=== PATIENT | female | born 1995 | race Caucasian/White ===

== ENCOUNTER 2019-05-04 12:25 | Inpatient (IN) | payer OTHER ==
[~2019-05-04] VITALS: Ht 154.9 cm; Wt 88.8 kg
[~2019-05-04 12:25] MED LIST: CIPR500T4 PO; NAPR-985 PO; PREN1TAB62 PO; TAMS-14 PO
[2019-05-04] MEDS ORDERED: LACTATED RINGER'S 1,000 ML IV PRN (13:08)
[2019-05-04 13:17] VITALS: Ht 154.9 cm; Wt 88.8 kg
[2019-05-04] MEDS: LACTATED RINGER'S 1,000 ML IV SCH ×2 (13:21→20:22)
[2019-05-04] MEDS ORDERED: LIDOCAINE 1% (MPF) 30 ML INJ INJ PRN (13:30)
[2019-05-04] MEDS ORDERED: MISOPROSTOL 200 MCG TAB PR PRN (13:30)
[2019-05-04] MEDS ORDERED: OXYTOCIN 30 UNITS/LR 500 ML IV PRN (13:30)
[2019-05-04] MEDS ORDERED: CARBOPROST 250 MCG INJ IM PRN (13:30)
[2019-05-04] MEDS ORDERED: OXYTOCIN 30 UNITS/LR 500 ML IV SCH ×2 (13:30)
[2019-05-04] MEDS ORDERED: IBUPROFEN 600 MG TAB PO PRN (13:30)
[2019-05-04] MEDS ORDERED: METHYLERGONOVINE 0.2 MG INJ IM PRN (13:30)
[2019-05-04] MEDS: OXYTOCIN 30 UNITS/LR 500 ML IV SCH (18:41)
[2019-05-04] MEDS ORDERED: ACETAMINOPHEN 325 MG TAB PO ONE (22:30)
[2019-05-05] MEDS ORDERED: BUTORPHANOL 2 MG INJ ONE (04:33)
[2019-05-05] MEDS: LACTATED RINGER'S 1,000 ML IV SCH ×2 (04:41→18:34)
[2019-05-05] MEDS ORDERED: BUTORPHANOL 2 MG INJ IV PRN (05:00)
--- NOTE | 2019-05-05 09:54 | PREAC ---
Date/Time of Note Date/Time of Note DATE: 05/05/19 TIME: 09:53 Anesthesia Eval and Record Evaluation Time Pre-Procedure Interview DATE: 05/05/19 TIME: 09:53 Age 24 Sex female NPO: 8 hrs Preoperative diagnosis LABOR PAIN Planned procedure LABOR EPIDURAL Past Medical History Past Medical History: Includes : : (2), Para: (1), Gestational age: (39 3/7 WEEKS) Surgery & Anesthesia Issues No known issue Meds Anticoagulation: No Beta Jaspreet within 24 hr: No Reason Beta Jaspreet not given: Pt. not on B-Jaspreet Active Scripts Tamsulosin Hcl* (Flomax*) 0.4 Mg Cap.er.24h, 0.4 MG PO QPM, #20 CAP take with food Prov:AFSHIN CROWELL PA-C 01/31/17 Naproxen* (Naprosyn*) 500 Mg Tablet, 500 MG PO BID PRN for PAIN AND/OR INFLAMMATION, #30 TAB Prov:AFSHIN CROWELL PA-C 01/31/17 Ciprofloxacin Hcl* (Ciprofloxacin Hcl*) 500 Mg Tablet, 500 MG PO BID for 10 Days, TAB Prov:AFSHIN CROWELL PA-C 01/31/17 Reported Medications Vit-Iron Fumarate-FA ( Vitamin Tablet) 1 Each Tablet, 1 TAB PO DAILY, TAB 10/04/16 Current Medications Lactated Ringer's 1,000 ml @ 125 mls/hr Q8H IV Last administered on 05/05/19at 04:41; Admin Dose 125 MLS/HR; Start 05/04/19 at 13:08 Lidocaine (Xylocaine 1% (Mpf)) 30 ml ONCE PRN INJ .EPISIOTOMY; Start 05/04/19 at 13:30 Oxytocin/Lactated Ringer's 500 ml @ 500 mls/hr ONCE POST IV ; Start 04/24 12/12 at 13:30 Oxytocin/Lactated Ringer's 500 ml @ 125 mls/hr POST IV ; Start 05/04/19 at 13:30 Ibuprofen (Motrin) 600 mg ONCE PRN PO .PAIN 1-5; Start 05/04/19 at 13:30 Lactated Ringer's 1,000 ml @ 2,000 mls/hr Q30M PRN IV .ANESTHESIA; Start 05/04/19 at 13:08 Oxytocin/Lactated Ringer's 500 ml @ 0 mls/hr ONCE PRN IV .VAGINAL BLEEDING; Start 05/04/19 at 13:30 Methylergonovine Maleate (Methergine) 0.2 mg ONCE PRN IM .VAGINAL BLEEDING; Start 05/04/19 at 13:30 Carboprost Tromethamine (Hemabate) 250 mcg ONCE PRN IM .VAGINAL BLEEDING; Start 05/04/19 at 13:30 Misoprostol (Cytotec) 1,000 mcg ONCE PRN [place] .VAGINAL BLEEDING; Start 05/04/19 at 13:30 Oxytocin/Lactated Ringer's 500 ml @ 0 mls/hr FOR INDUCTION IV Last administered on 05/04/19at 18:41; Admin Dose 1 MLS/HR; Start 05/04/19 at 16:30 Butorphanol Tartrate (Stadol) 2 mg Q2H PRN IV .PAIN SCALE 6-10 Last administered on 05/05/19at 04:41; Admin Dose 2 MG; Start 05/05/19 at 05:00 Meds reviewed: Yes Allergies Coded Allergies: No Known Allergy (Unverified , 10/04/16) Allergies Reviewed: Yes Labs/Studies Labs Reviewed: Reviewed by anesthesiologist Result Diagram: 05/04/19 1249 05/04/19 1249 Laboratory Tests 05/04/19 12:49 Blood Bank Test 05/04/19 12:49 Antibody Screen NEGATIVE Blood Type B POSITIVE Rh Immune Globulin Candidate NO test: N/A Pre-procedure Exam Airway: Adequate mouth opening, Adequate thyromental dist Mallampati: Mallampati II Teeth: Normal Lung: Normal Heart: Normal ASA Physical Status ASA physical status: 2 Emergency: None Planned Anesthetic Neuraxial: Epidural Planned Pain Management Epidural Pre-operative Attestations Prior to commencing anesthesia and surgery, the patient was re-evaluated, there was verification of: *The patient's identity *The results of appropriate recent lab work and preoperative vital signs *The above evaluation not changing prior to induction *Anesthetic plan, risk benefits, alternative and complications discussed with patient/family; questions answered; patient/family understands, accepts and wishes to proceed. Rocky Dumont M.D. May 05, 2019 09:54
[2019-05-05] MEDS ORDERED: FENTAnyl 2MCG/ML-ROPIV 0.2% 100 ML ONE (09:55)
[2019-05-05] MEDS ORDERED: NALOXONE (0.4 MG/ML) INJ IV PRN (10:00)
[2019-05-05] MEDS ORDERED: TRIMETHOBENZAMIDE 100 MG/ML VIAL IM PRN (10:00)
[2019-05-05] MEDS ORDERED: ONDANSETRON 4 MG INJ IV PRN (10:00)
[2019-05-05] MEDS ORDERED: DIPHENHYDRAMINE 50 MG INJ IV PRN (10:00)
--- NOTE | 2019-05-05 10:27 | PAC ---
Date/Time of Note Date/Time of Note DATE: 05/05/19 TIME: 10:27 Post-Anesthesia Notes Post-Anesthesia Note Last documented vital signs HR 76 RR 14 BP 113/67 T 98 Activity: WNL Respiratory function: WNL Cardiovascular function: WNL Mental status: Baseline Pain reasonably controlled: Yes Hydration appropriate: Yes Nausea/Vomiting absent: Yes Rocky Dumont M.D. May 05, 2019 10:27
[2019-05-05] MEDS: FENTAnyl 2MCG/ML-ROPIV 0.2% 100 ML BAG EPI SCH ×2 (17:09→23:33)
--- NOTE | 2019-05-05 19:02 | HP ---
Date/Time of Note Date/Time of Note DATE: 05/05/19 TIME: 18:54 OB - History Hx of Present Free Text/Dictation 23 Y.O at 39w2d for IOL for GHTN VE /-3 late entry at 27w4d patient is giving baby for adaption due to financial difficulty admitted for IOL with pitocin. GBS neg Chief Complaint: IOL Estimated Due Date: May 09, 2019 : 2 Para: 1 Spontaneous : 0 Therapeutic : 0 Care: Limited Care Ultrasounds: Normal mid trimester US Obstetrical Complications: Pre-eclampsia Medical Complications: None Past Family/Social History * Past Medical, Surgical, Family and Obstetric Histories reviewed from chart. Blood Type: B+ Rubella: not immune RPR/VDRL: Negative GBS Status: Negative HBsAG: Negative OB Admission Exam Physical Exam HEENT: WNL Heart: Rhythm Normal Lungs: Clear, Equal Abdomen: WNL Extremities: Normal Reflexes: Normal Cervical Dilatation: 3cm Effacement: 50% Station: -3 Membranes: Intact Heart Rate: 140's Accelerations: Accelerations Present Decelerations: No Decelerations Varibility: Moderate Contractions on Admission: >10 Minutes Apart Intensity: Mild Last 72 hours Lab Results CBC & BMP 05/04/19 12:49 Liver Function Test 05/04/19 12:49 Alanine Aminotransferase (ALT/SGPT) 17 Albumin 3.1 L Alkaline Phosphatase 192 H Aspartate Amino Transf (AST/SGOT) 20 Direct Bilirubin 0.00 Total Protein 6.6 OB Assessment/Plan Reason for admission: induction of labor Other Assessment: IUP 39w2d GHTN,preeclampsia Plan: Induction JEMIMA EDMONDS MD May 05, 2019 19:02
--- NOTE | 2019-05-05 19:03 | QN ---
Documentation Comment ARM clear VE3-4/50/-3 JEMIMA EDMONDS MD May 05, 2019 19:03
[2019-05-05] MEDS: OXYTOCIN 30 UNITS/LR 500 ML IV SCH (21:28)
[2019-05-06] VITALS (8 sets, daily range): BP systolic 130–154; BP diastolic 72–98; PULSE 97–107; RESP 18–19
[2019-05-06] MEDS: LACTATED RINGER'S 1,000 ML IV SCH ×2 (01:50→05:08)
[2019-05-06] MEDS: FENTAnyl 2MCG/ML-ROPIV 0.2% 100 ML BAG EPI SCH (05:00)
[2019-05-06] MEDS ORDERED: MINERAL OIL LIGHT 10 ML VIAL TOP ONE (05:00)
--- NOTE | 2019-05-06 05:36 | LDN ---
Date/Time of Note Date/Time of Note DATE: 05/06/19 TIME: 05:34 Delivery Summary Weeks of Gestation 39w2d Placenta Delivered: Spontaneously, Intact & Complete Meconium: none Episiotomy: No Perineal laceration: 0 Anesthesia type: Epidural Estimated blood loss: 50 Sponge & Needle done & correct: Yes All needle counts correct: Yes Any foreign bodies felt in the: No Delivery Information Sex Infant Sex: female Apgars 1 Minute: 8 5 Minute: 9 Suctioning Nose & mouth suctioned at amisha: Yes Delee suction performed: Yes Umbilical Cord Umbilical cord with: 3 Vessels Cord presentations: no nuchal cord Cord Blood was obtained: Yes Mother & Baby Disposition Disposition baby is for adoption Mom & Baby to Maternity; Good: Yes Mom transferred to: Other Baby to NICU: No () JEMIMA EDMONDS MD May 06, 2019 05:36
[2019-05-06] MEDS ORDERED: OXYTOCIN 30 UNITS/LR 500 ML IV PRN (08:00)
[2019-05-06] MEDS ORDERED: OXYCODONE/ASPIRIN (4.88/325) TAB PO PRN ×2 (08:00)
[2019-05-06] MEDS ORDERED: LANOLIN HPA 1 PKT TOP PRN (08:00)
[2019-05-06] MEDS ORDERED: METHYLERGONOVINE 0.2 MG INJ IM PRN (08:00)
[2019-05-06] MEDS ORDERED: CARBOPROST 250 MCG INJ IM PRN (08:00)
[2019-05-06] MEDS ORDERED: BENZOCAINE 20% 56 ML SPRAY TOP PRN (08:00)
[2019-05-06] MEDS ORDERED: MISOPROSTOL 200 MCG TAB PR PRN (08:00)
[2019-05-06] MEDS ORDERED: WITCH HAZEL/GLYCERIN PAD PR PRN (08:00)
[2019-05-06] MEDS ORDERED: ZOLPIDEM 5 MG TAB PO PRN (08:00)
[2019-05-06] MEDS: SENNA/DOCUSATE NA (8.6MG/50MG) TAB PO SCH ×2 (09:00→20:35)
[2019-05-06] MEDS: IBUPROFEN 600 MG TAB PO SCH ×3 (12:00→20:36)
[2019-05-07] MEDS: IBUPROFEN 600 MG TAB PO SCH ×3 (00:28→17:29)
[2019-05-07 08:00] VITALS: BP 135/86; PULSE 98; RESP 18
[2019-05-07] MEDS: SENNA/DOCUSATE NA (8.6MG/50MG) TAB PO SCH ×2 (08:21→20:41)
[2019-05-07 16:25] VITALS: BP 145/81; RESP 20
--- NOTE | 2019-05-07 19:21 | QN ---
Documentation Comment no c/o vss afebrile BP <140/90 fundus firm lochia min ext edematous cakf neg for tenderness lochia min A stable S/P P discharge home in am JEMIMA EDMONDS MD May 07, 2019 19:21
[2019-05-07 20:25] VITALS: BP 155/104; PULSE 100; RESP 19
[2019-05-07 20:30] VITALS: BP 151/98; PULSE 100; RESP 19
[2019-05-07 20:40] VITALS: BP 144/99; PULSE 97; RESP 19
[2019-05-07] MEDS: LABETALOL 100 MG TAB PO SCH (21:08)
[2019-05-07 22:20] VITALS: BP 143/99; PULSE 109; RESP 18
[2019-05-08] VITALS (26 sets, daily range): BP systolic 87–157; BP diastolic 65–105; PULSE 91–112; RESP 17–20
[2019-05-08] MEDS: IBUPROFEN 600 MG TAB PO SCH ×5 (00:10→23:54)
[2019-05-08] MEDS ORDERED: MAGNESIUM SULFATE 2 GM/50 ML 50 ML IVPB ONE (01:00)
[2019-05-08] MEDS ORDERED: LABETALOL HCL 20MG INJ IV ONE (01:00)
[2019-05-08] MEDS: LACTATED RINGER'S 1,000 ML IV PRN ×3 (02:50→22:31)
[2019-05-08] MEDS: MAGNESIUM SULFATE 20 GM/500 ML 500 ML IV SCH ×2 (03:12→21:13)
[2019-05-08] MEDS ORDERED: DIPHTH/TET/ACEL PERTUSS (ADULT) 0.5 ML VIAL IM* ONE (09:00)
[2019-05-08] MEDS: SENNA/DOCUSATE NA (8.6MG/50MG) TAB PO SCH ×2 (09:00→21:08)
[2019-05-08] MEDS: LABETALOL 100 MG TAB PO SCH ×2 (09:14→21:08)
[2019-05-08] MEDS ORDERED: CALCIUM GLUCONATE 10% 1 GM in DEXTROSE 5% 100 ML IVPB ONE ×2 (17:00→18:00)
[2019-05-08] MEDS ORDERED: CALCIUM GLUCONATE 10% 1 GM in DEXTROSE 5% 100 ML IVPB PRN (17:30)
[2019-05-08] MEDS ORDERED: LABETALOL 100 MG TAB PO ONE (22:30)
--- NOTE | 2019-05-08 22:31 | QN ---
Documentation Comment headache better come and go blood pressure 155/101/130's/78 had b.m fundus firm ext edematous ++/++ lochia min calf neg for tenderness P labetalol increase to 200mg bid d/c Mg in 300am JEMIMA EDMONDS MD May 08, 2019 22:31
[2019-05-09] VITALS (10 sets, daily range): BP systolic 117–154; BP diastolic 78–99; PULSE 90–103; RESP 17–19
[2019-05-09] MEDS: IBUPROFEN 600 MG TAB PO SCH ×4 (05:45→23:37)
[2019-05-09] MEDS: SENNA/DOCUSATE NA (8.6MG/50MG) TAB PO SCH ×2 (09:00→20:58)
[2019-05-09] MEDS: LABETALOL 100 MG TAB PO SCH ×2 (09:16→20:57)
--- NOTE | 2019-05-09 14:39 | CONS ---
Assessment/Plan Assessment/Plan Assessment/Plan (Daily) 24 yo previously healthy woman presents with late term preeclampsia, now s/p delivery #Hypertension #Headache #Lower extremity edema - These are all likely due to preeclampsia, the symptoms of which can persist up to 12 weeks after delivery. - I detect no heart murmurs or abdominal bruits, or anything else concerning on history or physical which may raise suspicion for another cause. - Recommend continue usual treatment of preeclampsia per obstetrics. - If hypertension, headache, and lower extremity edema persist 3 months after delivery then other causes should be investigated. - For now internal medicine will sign off. Consultation Date/Type/Reason Admit Date/Time May 04, 2019 at 12:25 Date of Consultation: May 09, 2019 Type of Consult Internal Medicine Reason for Consultation Headache and Hypertension Requesting Provider: BARRETT BRAR MD Date/Time of Note DATE: 05/09/19 TIME: 14:10 Hx of Present Illness Ms. Singleton is a healthy 24 yo G2G1 woman who presented 05/04/19 in labor at 39 weeks. She was diagnosed with preeclampsia by the historical site guide Dr. Brar. Now status post delivery on 05/05/19. Since delivery, the patient has continued to complain of headache. Last headache was last night 2 am, bitemporal tension type and resolved spontaneously. Her blood pressure has remained elevated at 130s to 150s systolic. She does report feeling anxious as well. Otherwise doing well, no major complaints. Tolerating diet and ambulating. Last ended with vaginal delivery at 38 weeks; was not associated with hypertension or pre-eclampsia. She has not had elevated blood pressure in the past until this hospital admission. She denies fever, chills, weight loss, anorexia, dizziness, vision changes, dysphagia, sore throat, chest pain/pressure/palpitations, nausea, vomiting, diarrhea, constipation, flank pain. Past Medical History None Home Meds Active Scripts Tamsulosin Hcl* (Flomax*) 0.4 Mg Cap.er.24h, 0.4 MG PO QPM, #20 CAP take with food Prov:AFSHIN CROWELL PA-C 01/31/17 Naproxen* (Naprosyn*) 500 Mg Tablet, 500 MG PO BID PRN for PAIN AND/OR IN FLAMMATION, #30 TAB Prov:AFSHIN CROWELL PA-C 01/31/17 Ciprofloxacin Hcl* (Ciprofloxacin Hcl*) 500 Mg Tablet, 500 MG PO BID for 10 Days, TAB Prov:AFSHIN CROWELL Karis WALDEN 01/31/17 Reported Medications Vit-Iron Fumarate-FA ( Vitamin Tablet) 1 Each Tablet, 1 TAB PO DAILY, TAB 10/04/16 Medications Current Medications Ibuprofen (Motrin) 600 mg Q6 PO Last administered on 05/09/19at 12:41; Admin Dose 600 MG; Start 05/06/19 at 12:00 Oxycodone/Aspirin (Percodan) 1 tab Q3H PRN PO .PAIN 1-5 Last administered on 05/08/19at 21:13; Admin Dose 1 TAB; Start 05/06/19 at 08:00 Oxycodone/Aspirin (Percodan) 2 tab Q3H PRN PO .PAIN 6-10; Start 05/06/19 at 08:00 Zolpidem Tartrate (Ambien) 5 mg QHS PRN PO .INSOMNIA; Start 05/06/19 at 08:00 Senna/Docusate Sodium (Senokot-S) 1 tab BID PO Last administered on 05/08/19at 21:08; Admin Dose 1 TAB; Start 05/06/19 at 09:00 Witch Li/ Glycerin (Tucks Pads) 1 pad BEDSIDE MEDICATION PRN [place] .HEMORRHOID/EPISIOTOMY PAIN Last administered on 05/06/19at 12:29; Admin Dose 40 PAD; Start 05/06/19 at 08:00 Benzocaine (Dermoplast [place]) 1 spray BEDSIDE MEDICATION PRN [place] .HE MMORHOID/EPISIOTOMY PAIN Last administered on 05/06/19at 12:30; Admin Dose 56 SPRAY; Start 05/06/19 at 08:00 Lanolin (Lanolin Hpa) 1 applic BEDSIDE MEDICATION PRN [place] .NIPPLES; Start 05/06/19 at 08:00 Oxytocin/Lactated Ringer's 500 ml @ 0 mls/hr ONCE PRN IV .VAGINAL BLEEDING; Start 05/06/19 at 08:00 Methylergonovine Maleate (Methergine) 0.2 mg ONCE PRN IM .VAGINAL BLEEDING; Start 05/06/19 at 08:00 Carboprost Tromethamine (Hemabate) 250 mcg ONCE PRN IM .VAGINAL BLEEDING; Start 05/06/19 at 08:00 Misoprostol (Cytotec) 1,000 mcg ONCE PRN [place] .VAGINAL BLEEDING; Start 05/06/19 at 08:00 Lactated Ringer's 1,000 ml @ 100 mls/hr Q10H PRN IV ELEVATED BLOOD PRESSURE Last administered on 05/08/19at 22:31; Admin Dose 100 MLS/HR; Start 05/08/19 at 03:00 Calcium Gluconate 1 gm/Dextrose 110 ml @ 110 mls/hr PRN PRN IVPB pt is on MGsulfate IV , risk ; Start 05/08/19 at 17:30 Labetalol HCl (Normodyne) 200 mg BID PO Last administered on 05/09/19at 09:16; Admin Dose 200 MG; Start 05/09/19 at 09:00 Allergies: Coded Allergies: No Known Allergy (Unverified , 10/04/16) Past Surgical History None Family History Significant Family History: no pertinent family hx (mother and father no heart or kidney issues) Social History Alcohol Use: none Smoking Status: Never smoker Drug Use: none Exam/Review of Systems Exam Vitals Vital Signs Date Temp Pulse Resp B/P (MAP) Pulse Ox O2 O2 Flow FiO2 Time Delivery Rate 05/09/19 97.9 100 18 154/93 Room Air 08:00 (113) Intake and Output 05/08/19 05/08/19 05/09/19 1515:00 23:00 07:00 IntakeIntake Total 350 ml 550 ml OutputOutput Total 2150 ml 1200 ml BalanceBalance -2150 ml -850 ml 550 ml Exam Gen: Obese woman sitting up in bed, fully clothed, well appearing. Eyes: PERRL, no icterus HEENT: Moist mucous membranes, clear oropharynx Neck: Supple, no masses or lymphadenopathy. Card: Regular rate and rhythm with no murmurs Pulm: Clear to auscultation bilaterally Abd: Soft, nontender, nondistended. Normoactive bowel sounds. Ext: 1+ lower extremity pitting edema. Palpable DP pulses bilaterally. Skin: warm, dry, well perfused. Results Result Diagram: 05/08/19 0059 05/08/19 0059 Results 24hrs Laboratory Tests Test 05/08/19 15:44 05/08/19 21:58 Magnesium Level 4.0 H 4.1 H Medications Medication Current Medications Ibuprofen (Motrin) 600 mg Q6 PO Last administered on 05/09/19 12:41; Admin Dose 600 MG; Start 05/06/19 at 12:00 Oxycodone/Aspirin (Percodan) 1 tab Q3H PRN PO .PAIN 1-5 Last administered on 05/08/19at 21:13; Admin Dose 1 TAB; Start 05/06/19 at 08:00 Oxycodone/Aspirin (Percodan) 2 tab Q3H PRN PO .PAIN 6-10; Start 05/06/19 at 08:00 Zolpidem Tartrate (Ambien) 5 mg QHS PRN PO .INSOMNIA; Start 05/06/19 at 08:00 Senna/Docusate Sodium (Senokot-S) 1 tab BID PO Last administered on 05/08/19 21:08; Admin Dose 1 TAB; Start 05/06/19 at 09:00 Witch Li/ Glycerin (Tucks Pads) 1 pad BEDSIDE MEDICATION PRN [place] .HEMORRHOID/EPISIOTOMY PAIN Last administered on 05/06/19 12:29; Admin Dose 40 PAD; Start 05/06/19 at 08:00 Benzocaine (Dermoplast [place]) 1 spray BEDSIDE MEDICATION PRN [place] .HEMMORHOID/EPISIOTOMY PAIN Last administered on 05/06/19 12:30; Admin Dose 56 SPRAY; Start 05/06/19 at 08:00 Lanolin (Lanolin Hpa) 1 applic BEDSIDE MEDICATION PRN [place] .NIPPLES; Start 05/06/19 at 08:00 Oxytocin/Lactated Ringer's 500 ml @ 0 mls/hr ONCE PRN IV .VAGINAL BLEEDING; Start 05/06/19 at 08:00 Methylergonovine Maleate (Methergine) 0.2 mg ONCE PRN IM .VAGINAL BLEEDING; Start 05/06/19 at 08:00 Carboprost Tromethamine (Hemabate) 250 mcg ONCE PRN IM .VAGINAL BLEEDING; Start 05/06/19 at 08:00 Misoprostol (Cytotec) 1,000 mcg ONCE PRN [place] .VAGINAL BLEEDING; Start 05/06/19 at 08:00 Lactated Ringer's 1,000 ml @ 100 mls/hr Q10H PRN IV ELEVATED BLOOD PRESSURE Last administered on 05/08/19 22:31; Admin Dose 100 MLS/HR; Start 05/08/19 at 03:00 Calcium Gluconate 1 gm/Dextrose 110 ml @ 110 mls/hr PRN PRN IVPB pt is on MGsulfate IV , risk ; Start 05/08/19 at 17:30 Labetalol HCl (Normodyne) 200 mg BID PO Last administered on 05/09/19at 09:16; Admin Dose 200 MG; Start 05/09/19 at 09:00 ARMANDO MURILLO MD May 09, 2019 14:20
--- NOTE | 2019-05-09 23:21 | DS ---
Date/Time of Note Date/Time of Note DATE: 05/09/19 TIME: 23:19 Obstetrical Discharge Record Final Diagnosis Final Diagnosis: Term delivered Other Final Diagnosis preecclmpsia Vaginal Delivery Obstetrical Delivery: Spontaneous Complications Induction: Yes Rupture of Membranes: No Condition on Discharge Physical Assessment Last Vitals: vss afebrile B.P 135-154/84-99 no more headache no chest pain or SOB or visual disturbance Voiding: Yes Bowel Movement: Yes Breast: Soft, non-tender Fundus: Firm Abdomen and Incision: N/A Calf Tenderness: No Patient Condition: Stable JEMIMA EDMONDS MD May 09, 2019 23:21
--- NOTE | 2019-05-09 23:23 | PD.PPDC ---
SPIRITUAL MINISTER Discharge Instruction Diagnosis [id number] Final Diagnosis: Sbgui3d s/p precclampsia Condition [id number] Patient Condition: Wkolw8c Stable Diet [id number] Diet: Ukbqw1a Resume Regular Diet Activity/Restrictions [id number] Activity: Aater7f May Shower [id number] Restrictions: Rdfpe3m No Lifting No Sexual Activity Nothing in the Vagina No [place] No Tampons, douche Follow-up Follow-up with Physician: 2, Week/Weeks Provider Information: with PMD for her BP monitoring Return to clinic for [id number] [employer]EARCH SENIOR PROJECT MANAGER Instructions: Xsdzg7y Fever greater than 101 Chills Worsening abdominal pain Excessive Vaginal Bleeding More than 2 pads per hour Unable to tolerate diet [id number] OB Instructions: Ticlx0w Breast Tenderness Depression Blurried Vision JEMIMA EDMONDS MD May 09, 2019 23:23
[2019-05-10 03:30] VITALS: BP 127/92; PULSE 88; RESP 18
[2019-05-10] MEDS: IBUPROFEN 600 MG TAB PO SCH ×4 (05:38→23:44)
[2019-05-10 08:00] VITALS: BP 160/100; PULSE 95; RESP 18
[2019-05-10] MEDS: SENNA/DOCUSATE NA (8.6MG/50MG) TAB PO SCH ×3 (09:00→21:23)
[2019-05-10] MEDS: LABETALOL 100 MG TAB PO SCH ×2 (10:00→21:23)
[2019-05-10 12:00] VITALS: BP 147/104; PULSE 89; RESP 18
[2019-05-10] MEDS ORDERED: LABETALOL 100 MG TAB PO ONE (14:00)
[2019-05-10 16:03] VITALS: BP 159/107; PULSE 96; RESP 20
--- NOTE | 2019-05-10 16:41 | QN ---
Documentation Comment no headache but BP 160/110 hospitalist called again who increase labetalol [id number] patient is upset ready to depart hosp spoke to her for necessities for observation of condition patient agree to stay JEMIMA EDMONDS MD May 10, 2019 16:40
[2019-05-10 20:00] VITALS: BP 139/94; PULSE 100; RESP 19
[2019-05-11 03:40] VITALS: BP 103/92; PULSE 86; RESP 19
[2019-05-11] MEDS: IBUPROFEN 600 MG TAB PO SCH ×4 (05:30→23:55)
[2019-05-11] MEDS: SENNA/DOCUSATE NA (8.6MG/50MG) TAB PO SCH ×2 (09:00→21:15)
[2019-05-11] MEDS: LABETALOL 100 MG TAB PO SCH ×2 (09:20→21:16)
[2019-05-11] MEDS: NIFEdipine (XL) 30 MG TAB PO SCH (12:01)
[2019-05-11 12:16] VITALS: BP 131/87; PULSE 89; RESP 18
--- NOTE | 2019-05-11 13:12 | PN ---
Date/Time of Note Date/Time of Note DATE: 05/11/19 TIME: 13:12 Objective Vitals Vital Signs Date Temp Pulse Resp B/P (MAP) Pulse Ox O2 O2 Flow FiO2 Time Delivery Rate 05/11/19 98.1 89 18 131/87 Room Air 12:16 (102) Results Result Diagram: 05/08/19 0059 05/08/19 0059 Medications Medications Current Medications Ibuprofen (Motrin) 600 mg Q6 PO Last administered on 05/11/19at 05:30; Admin Dose 600 MG; Start 05/06/19 at 12:00 Oxycodone/Aspirin (Percodan) 1 tab Q3H PRN PO .PAIN 1-5 Last administered on 05/08/19at 21:13; Admin Dose 1 TAB; Start 05/06/19 at 08:00 Oxycodone/Aspirin (Percodan) 2 tab Q3H PRN PO .PAIN 6-10; Start 05/06/19 at 08:00 Zolpidem Tartrate (Ambien) 5 mg QHS PRN PO .INSOMNIA; Start 05/06/19 at 08:00 Senna/Docusate Sodium (Senokot-S) 1 tab BID PO Last administered on 05/08/19at 21:08; Admin Dose 1 TAB; Start 05/06/19 at 09:00 Witch Li/ Glycerin (Tucks Pads) 1 pad BEDSIDE MEDICATION PRN [place] .HEMORRHOID /EPISIOTOMY PAIN Last administered on 05/06/19at 12:29; Admin Dose 40 PAD; Start 05/06/19 at 08:00 Benzocaine (Dermoplast [place]) 1 spray BEDSIDE MEDICATION PRN TOP .HEMMORHOID/EPISIOTOMY PAIN Last administered on 05/06/19at 12:30; Admin Dose 56 SPRAY; Start 05/06/19 at 08:00 Lanolin (Lanolin Hpa) 1 applic BEDSIDE MEDICATION PRN TOP .NIPPLES; Start 05/06/19 at 08:00 Oxytocin/Lactated Ringer's 500 ml @ 0 mls/hr ONCE PRN IV .VAGINAL BLEEDING; Start 05/06/19 at 08:00 Methylergonovine Maleate (Methergine) 0.2 mg ONCE PRN IM .VAGINAL BLEEDING; Start 05/06/19 at 08:00 Carboprost Tromethamine (Hemabate) 250 mcg ONCE PRN IM .VAGINAL BLEEDING; Start 05/06/19 at 08:00 Misoprostol (Cytotec) 1,000 mcg ONCE PRN [place] .VAGINAL BLEEDING; Start 05/06/19 at 08:00 Calcium Gluconate 1 gm/Dextrose 110 ml @ 110 mls/hr PRN PRN IVPB pt is on MGsulfate IV , risk ; Start 05/08/19 at 17:30 Labetalol HCl (Normodyne) 100 mg BID PO ; Start 05/11/19 at 21:00 Nifedipine (Procardia Xl) 30 mg DAILY PO Last administered on 05/11/19at 12:01; Admin Dose 30 MG; Start 05/11/19 at 11:30 VTE Prophylaxis Risk score (from Ns)>0 risk: 1 SCD applied (from [facility] [place]): Yes Lines/Catheters IV Catheter Type: Pairkh in Place: No Assessment/Plan Hospital Course Subjective Patient has no acute complaints, BP has been fluctuating overnight Objective Physical exam General: Patient is laying in bed and answers questions appropriately Mentation: Patient is alert and oriented 4, Head: Normocephalic atraumatic Eyes: EOMI, pupils reactive to light Neck: Supple, nontender, midline Respiratory: Clear to auscultation bilaterally Cardiovascular: regular rate, no obvious murmurs Gastrointestinal: Mild-tender to palpation, bowel sounds heard. Neurological: Moves all extremities spontaneously Skin: No new skin lesions Assessment and plan Hypertension -Secondary to recent -We will need to titrate medications, will cut down on labetalol and add nifedipine XL instead, recommend 24-hour monitoring for good blood pressure control before discharge Headache -This has resolved since my previous call he has seen the patient, no complaints of headache Lower extremity edema -Monitor very closely, no need to follow-up with your primary care provider and DIGITAL COMPUTER OPERATOR within 1 week. This is likely secondary to effects of and possible preeclampsia. Disposition -I recommend 24-hour monitoring for blood pressure control, hypertension headache and lower extremity edema should not persist more than 1 to 2 months, if it does this needs to be brought up to a medical professional as soon as possible. ECHO LOCKHART May 11, 2019 13:12
[2019-05-11 17:06] VITALS: BP 133/76; PULSE 92; RESP 18
--- NOTE | 2019-05-11 17:46 | QN ---
Documentation Comment hospitalist rec to keep her one more day with procardia XL with lower the labetalol to 200mg BID patient more relaxed no subjective symptoms, P as IM rec JEMIMA EDMONDS MD May 11, 2019 17:46
[2019-05-11 20:00] VITALS: BP 149/91; PULSE 9; RESP 19
[2019-05-11 23:55] VITALS: BP 127/77; PULSE 95; RESP 19
[2019-05-12 04:00] VITALS: BP 126/76; PULSE 90; RESP 19
[2019-05-12] MEDS: IBUPROFEN 600 MG TAB PO SCH ×2 (06:00→08:58)
[2019-05-12 08:20] VITALS: BP 128/76; PULSE 73; RESP 17
[2019-05-12] MEDS: NIFEdipine (XL) 30 MG TAB PO SCH (08:55)
[2019-05-12] MEDS: LABETALOL 100 MG TAB PO SCH (08:56)
[2019-05-12] MEDS: SENNA/DOCUSATE NA (8.6MG/50MG) TAB PO SCH (09:00)
--- NOTE | 2019-05-12 11:24 | PN ---
Date/Time of Note Date/Time of Note DATE: 05/12/19 TIME: 11:22 Objective Vitals Vital Signs Date Temp Pulse Resp B/P (MAP) Pulse Ox O2 O2 Flow FiO2 Time Delivery Rate 05/12/19 98.0 73 17 128/76 Room Air 08:20 (93) Results Result Diagram: 05/08/19 0059 05/08/19 0059 Medications Medications Current Medications Ibuprofen (Motrin) 600 mg Q6 PO Last administered on 05/12/19at 08:58; Admin Dose 600 MG; Start 05/06/19 at 12:00 Oxycodone/Aspirin (Percodan) 1 tab Q3H PRN PO .PAIN 1-5 Last administered on 05/08/19at 21:13; Admin Dose 1 TAB; Start 05/06/19 at 08:00 Oxycodone/Aspirin (Percodan) 2 tab Q3H PRN PO .PAIN 6-10; Start 05/06/19 at 08:00 Zolpidem Tartrate (Ambien) 5 mg QHS PRN PO .INSOMNIA; Start 05/06/19 at 08:00 Senna/Docusate Sodium (Senokot-S) 1 tab BID PO Last administered on 05/11/19at 21:15; Admin Dose 1 TAB; Start 05/06/19 at 09:00 Witch Li/ Glycerin (Tucks Pads) 1 pad BEDSIDE MEDICATION PRN [place] .HEMORRHOID/ EPISIOTOMY PAIN Last administered on 05/06/19at 12:29; Admin Dose 40 PAD; Start 05/06/19 at 08:00 Benzocaine (Dermoplast [place]) 1 spray BEDSIDE MEDICATION PRN TOP .HEMMORHOID/EPISIOTOMY PAIN Last administered on 05/06/19at 12:30; Admin Dose 56 SPRAY; Start 05/06/19 at 08:00 Lanolin (Lanolin Hpa) 1 applic BEDSIDE MEDICATION PRN TOP .NIPPLES; Start 05/06/19 at 08:00 Oxytocin/Lactated Ringer's 500 ml @ 0 mls/hr ONCE PRN IV .VAGINAL BLEEDING; Start 05/06/19 at 08:00 Methylergonovine Maleate (Methergine) 0.2 mg ONCE PRN IM .VAGINAL BLEEDING; Start 05/06/19 at 08:00 Carboprost Tromethamine (Hemabate) 250 mcg ONCE PRN IM .VAGINAL BLEEDING; Start 05/06/19 at 08:00 Misoprostol (Cytotec) 1,000 mcg ONCE PRN [place] .VAGINAL BLEEDING; Start 05/06/19 at 08:00 Calcium Gluconate 1 gm/Dextrose 110 ml @ 110 mls/hr PRN PRN IVPB pt is on MGsulfate IV , risk ; Start 05/08/19 at 17:30 Labetalol HCl (Normodyne) 100 mg BID PO Last administered on 05/12/19at 08:56; Admin Dose 100 MG; Start 05/11/19 at 21:00 Nifedipine (Procardia Xl) 30 mg DAILY PO Last administered on 05/12/19at 08:55; Admin Dose 30 MG; Start 05/11/19 at 11:30 VTE Prophylaxis Risk score (from Ns)>0 risk: 1 SCD applied (from [facility] [place]): No SCD contraindication: other Lines/Catheters IV Catheter Type: Parikh in Place: No Assessment/Plan Hospital Course Subjective Patient has no acute complaints, BP stable Objective Physical exam General: Patient is laying in bed and answers questions appropriately Mentation: Patient is alert and oriented 4, Head: Normocephalic atraumatic Eyes: EOMI, pupils reactive to light Neck: Supple, nontender, midline Respiratory: Clear to auscultation bilaterally Cardiovascular: regular rate, no obvious murmurs Gastrointestinal: Mild-tender to palpation, bowel sounds heard. Neurological: Moves all extremities spontaneously Skin: No new skin lesions Assessment and plan Hypertension -Secondary to recent -Blood pressure is now stable, continue nifedipine XL at 30 mg daily as well as labetalol 100 mg twice a day Headache -This has resolved since my previous call he has seen the patient, no complaints of headache Lower extremity edema -Monitor very closely, no need to follow-up with your primary care provider and COMPLIANCE LEAD within 1 week. This is likely secondary to effects of and possible preeclampsia. Disposition -From internal medicine perspective, okay to discharge to follow-up with COMPLIANCE LEAD and primary care provider within 1 week. I explained to the patient that she did not wait 2 weeks for normal scheduled visit as her blood pressure issues may quickly change. Patient may be discharged on current regimen of 30 mg nifedipine XL daily as well as labetalol 100 mg twice a day. Patient understands to take her blood pressure readings at least twice a day ECHO LOCKHART May 12, 2019 11:24
[2019-05-12 12:30] VITALS: BP 120/71; PULSE 75
--- NOTE | 2019-05-12 13:13 | DS ---
Date/Time of Note Date/Time of Note DATE: 05/12/19 TIME: 13:11 Obstetrical Discharge Record Final Diagnosis Final Diagnosis: Term delivered Other Final Diagnosis GHTN/chronic HTN Vaginal Delivery Obstetrical Delivery: Spontaneous Complications Induction: Yes Rupture of Membranes: No Condition on Discharge Physical Assessment Last Vitals: B.p 120's-70's Voiding: Yes Bowel Movement: Yes Breast: Soft, non-tender Fundus: Firm Calf Tenderness: No Patient Condition: Stable JEMIMA EDMONDS MD May 12, 2019 13:13
--- NOTE | 2019-05-13 14:58 | DELSUM ---
Delivery Summary A-C Datetime Report Generated by CPN: 05/13/2019 14:58 DELIVERY PERSONNEL Insole Channeler: Tersigni, Katerin MATERNAL INFORMATION Delivery Anesthesia: Epidural Medications in Delivery: LR with 30 units of pitocin Delivery QBL (ml): 50 Placenta Cultured: No Maternal Complications: Other Other Maternal Complications: High blood pressure LABOR SUMMARY EDC: 05/09/2019 00:00 No. Babies in Womb: 1 Attempted: No Labor Anesthesia: Epidural LABOR INFORMATION Reason for Induction: Gest. HTN/PreEclam/Eclamp Onset of Labor: 05/04/2019 14:27 Complete Dilatation: 05/06/2019 04:55 Oxytocin: Induction Group B Beta Strep: Negative Antibiotics # of Doses: 0 Steroids Given: None Reason Steroids Not Administered: Not Applicable MEMBRANES Membranes Rupture Method: Artificial Rupture of Membranes: 05/05/2019 18:25 Length of Rupture (hr): 10.88 Amniotic Fluid Color: Clear Amniotic Fluid Amount: Small Amniotic Fluid Odor: None STAGES OF LABOR Stage 1 hr: 38 Stage 1 min: 28 Stage 2 hr: 0 Stage 2 min: 23 Stage 3 hr: 0 Stage 3 min: 3 Total Time in Labor hr: 38 Total Time in Labor min: 54 VAGINAL DELIVERY Episiotomy: None Laceration Extension: N/A Laceration Type: None Laceration Repair: Not Applicable Initial Vag Sponge Count: 10 Final Vag Sponge Count: 10 Initial Vag Sharps Count: 1 Final Vag Sharps Count: 1 Sponge Count Correct: Yes; Vaginal Sweep Performed Sharps Count Correct: Yes BABY A INFORMATION Infant Delivery Date/Time: 05/06/2019 05:18 Method of Delivery: Vaginal Born in Route : No : N/A Forceps: N/A Vacuum Extraction: N/A Shoulder Dystocia : No SHOULDER DYSTOCIA BABY A Delivery Date/Time: 05/06/2019 05:18 PRESENTATION/POSITION BABY A Presentation: Cephalic Cephalic Presentation: Vertex Vertex Position: Left Occipital Anterior Breech Presentation: N/A PLACENTA INFORMATION BABY A Placenta Delivery Time : 05/06/2019 05:21 Placenta Method of Delivery: Spontaneous Placenta Status: Delivered SCORES BABY A Heart Rate 1 min: >100 bpm Resp Effort 1 min: Good Cry Reflex Irritability 1 min: Cough/Sneeze/Pulls Away Muscle Tone 1 min: Active Motion Color 1 min: Body [place], Extremit Blue Resuscitation Effort 1 min: Tactile Stimulation SCORE 1 MIN: 9 Heart Rate 5 min: >100 bpm Resp Effort 5 min: Good Cry Reflex Irritability 5 min: Cough/Sneeze/Pulls Away Muscle Tone 5 min: Active Motion Color 5 min: Body [place], Extremit Blue Resuscitation Effort 5 min: Tactile Stimulation SCORE 5 MIN: 9 INFORMATION BABY A Gestational Age at Delivery: 39.4 Gestational Status: Full Term- 39- 40.6 Weeks Infant Outcome : Liveborn Infant Condition : Stable Infant Sex: Female IDENTIFICATION/MEDS BABY A ID Band Number: [id number] ID Band Location: Right Leg; Left Arm Sensor Applied: Yes Sensor Number: [id number] Sensor Location : Cord Clamp Vitamin K Given : Not Given Erythromycin Given: Not Given WEIGHT/LENGTH BABY A Birthweight (gm): 2915 Weight (lb): 6 Infant Weight (oz): 7 Length (in): 18.50 Infant Length (cm): 46.99 CORD INFORMATION BABY A No. Cord Vessels: 3 Nuchal Cord : N/A Cord Blood Taken: Yes Banking/Donate Info: no Suction: Mouth; Nose ASSESSMENT BABY A Complications: None Physical Findings at Delivery: Within Normal Limits Infant Respirations: Appears Normal Chiropractic Care/ALS Called : No Infant Care By: Mirna COKER Transferred To: Remains with Mother
== END 2019-05-12 14:15 | disposition home or self-care (01) | DRG 807 ==
LOC: EEVIPCON 12:25 → L-D 12:25 → PP1 05-06 07:58
PROVIDERS: ADMIT Obstetrics & Gynecology; ATTEND Obstetrics & Gynecology
PROC: 10E0XZZ Delivery of Products of Conception, External Approach (ICD-10-PCS; principal; 2019-05-05)
PROC: 3E033VJ Introduction of Other Hormone into Peripheral Vein, Percutaneous Approach (ICD-10-PCS; 2019-05-05)
DX: O13.4 Gestational [pregnancy-induced] hypertension without significant proteinuria, complicating childbirth (principal); O14.94 Unspecified pre-eclampsia, complicating childbirth; Z3A.39 39 weeks gestation of pregnancy; Z37.0 Single live birth
CPT/HCPCS: 62322; 76815; 80053; 80307; 81001; 83735; 84560; 85025; 85384; 85610; 85730; 86592; 86850; 86900; 86901; J0595; J0610; J2590; J3010; J3475; J7120